=== PATIENT | male | born 1980 | race Caucasian/White ===

== ENCOUNTER 2021-04-04 23:16 | Emergency (ER) | payer OTHER ==
[~2021-04-04] VITALS: Ht 177.8 cm; Wt 108.9 kg
[~2021-04-04 23:16] MED LIST: ATIVAN1 M1 PO; ATIVAN1 MG PO; DOXYCYCLINE 10100 MG; FLEXERIL PO; IBUPROFEN 800800 M1 PO; IBUPROFEN 800800 MG PO; Magic Mouthwash PO; NOHOMEMEDICATIONS; NORCO 5-325 TA1 EACH PO; PAXIL10 MG PO; PENICILLIN V P500 MG PO; PREDNISONE 20 M20 M1 PO; PROAIR HFA8.5 GM INH; PROPRANOLOL 1010 MG PO; VALIUM5 MG; XANAX1 MG; ZOFRAN ODT4 MG PO; ZPAK PO
[2021-04-05 00:06] LABS: ABSOLUTE NEUTROPHILS 6.3 thou/uL (1.4-8.2); BASOPHILS 0.7 % (0.0-2.0); EOSINOPHILS 0.6 % (0.0-3.0); HEMATOCRIT 43.8 % (42.0-52.0); HEMOGLOBIN 15.5 gm/dL (14.0-18.0); LYMPHOCYTES 25.6 % (24.0-44.0); MCH 32.3 pg (26.0-34.0); MCHC 35.3 g/dL (28.0-37.0); MCV 91.6 fL (80.0-100.0); MONOCYTES 9.2 % (1.0-8.0); PLATELET COUNT 338 thou/uL (150-400); POLYS 63.9 % (36.0-66.0); RBC 4.78 mil/uL (4.50-6.00); RDW 13.2 % (10.5-14.5); WBC 9.9 thou/uL (4.0-11.0)
[2021-04-05 00:34] LABS: ALBUMIN 4.1 g/dL (3.4-5.0); ANION GAP 15 mmol/L (7-16); BUN 12 mg/dL (7-18); CALCIUM 8.8 mg/dL (8.5-10.1); CHLORIDE 105 mmol/L (98-107); CO2 23 mmol/L (21-32); CREATININE 1.1 mg/dL (0.7-1.3); GLUCOSE 124 mg/dL (74-106); SGOT 18 U/L (15-37); SGPT 28 U/L (30-65); SODIUM 143 mmol/L (136-145); TOTAL BILIRUBIN 0.2 mg/dL (0.2-1.0); TOTAL PROTEIN 7.5 g/dL (6.4-8.2); TROPONIN-I <0.06 ng/mL (<0.06)
[2021-04-05 00:54] VITALS: BP 110/70
--- NOTE | 2021-04-05 07:10 | EKG ---
[address] [address] ELECTROCARDIOGRAM REPORT Name: TOM WELLSYOMAIRA Huang Room #: [facility]#: [id number] Admission: 04/04/21 Attend Phys: Discharge: 04/05/21 Date of : 78 Report #: [id number] [facility] ED Test Date: 2021-04-04 Test Time: 23:30:08 Pat Name: JAY WELLS Department: Room: Gender: Head [employer]: JORGE : 1980 Requested By: Candi Harding Order Number: [id number] MD: Quinn Garg Measurements Intervals [place] Rate: 96 P: 52 MO: 163 QRS: 36 QRSD: 113 T: 41 QT: 356 QTc: 450 Interpretive Statements Sinus rhythm No previous ECG available for comparison Electronically Signed On 04-05-2021 7:09:59 CDT by Quinn Garg [email or web address] <ELECTRONICALLY SIGNED> By: Quinn Garg MD, [facility] 04/05/21 0709 2330 2330 Quinn Garg MD, FACC /EPI
== END 2021-04-05 01:40 | disposition left against medical advice (07) ==
LOC: ER 23:16
PROVIDERS: Emergency Medicine
DX: R07.89 Other chest pain (principal); F41.9 Anxiety disorder, unspecified; J45.909 Unspecified asthma, uncomplicated; F32.9 Major depressive disorder, single episode, unspecified; I10 Essential (primary) hypertension; F17.210 Nicotine dependence, cigarettes, uncomplicated; F12.90 Cannabis use, unspecified, uncomplicated; Z79.1 Long term (current) use of non-steroidal anti-inflammatories (NSAID); Z79.899 Other long term (current) drug therapy; Z88.8 Allergy status to other drugs, medicaments and biological substances